=== PATIENT | female | born 1980 | race Hispanic/Latino ===

== ENCOUNTER 2018-05-12 20:56 | Emergency (ER) | payer SELFPAY ==
[~2018-05-12] VITALS: Ht 167.6 cm; Wt 93.9 kg
[2018-05-12] MEDS ORDERED: LISINOPRIL10 MG PO (21:32)
[2018-05-12 23:04] VITALS: BP 132/89
== END 2018-05-12 23:18 | disposition home or self-care (01) ==
LOC: ER 20:56
DX: I10 Essential (primary) hypertension (principal); F41.1 Generalized anxiety disorder
CPT/HCPCS: 99283

== ENCOUNTER 2018-08-27 01:29 | Emergency (ER) | payer SELFPAY ==
[~2018-08-27] VITALS: Ht 167.6 cm; Wt 93.9 kg
[~2018-08-27 01:29] MED LIST: LISINOPRIL10 MG PO
[2018-08-27] MEDS ORDERED: ONDANSETRON HCL INJ 2 MG/ML VIAL IV STA (01:55)
[2018-08-27] MEDS ORDERED: MORPHINE SULFATE 2 MG/ML SYR IV STA (01:55)
[2018-08-27] MEDS ORDERED: PANTOPRAZOLE 40 MG 10ML VIAL IV STA (01:55)
[2018-08-27] MEDS ORDERED: SODIUM CHLORIDE 0.9% 1000ML 1,000 ML IV SCH (02:00)
[2018-08-27] MEDS ORDERED: DICYCLOMINE HCL 20 MG/2 ML VIAL IM ONE (02:00)
[2018-08-27 02:30] LABS: BASOPHILS % 0.3 % (0.0-1.0); EOSINOPHILS # (AUTO) 0.1 (0.0-0.4); EOSINOPHILS % 0.7 % (0.0-6.0); HEMATOCRIT 39.3 % (34.2-44.1); HEMOGLOBIN 13.3 g/dL (12.0-16.0); LYMPHOCYTES # (AUTO) 2.9 (1.0-3.2); LYMPHOCYTES % 31.1 % (18.0-39.1); MEAN CORPUSCULAR HEMOGLOBIN 30.9 pg (28-32); MEAN CORPUSCULAR HGB CONC 33.8 g/dL (31-35); MEAN CORPUSCULAR VOLUME 91.2 fL (81-99); MONOCYTES # (AUTO) 0.6 (0.2-0.8); MONOCYTES % 6.3 % (4.4-11.3); NEUTROPHILS # (AUTO) 5.8 (2.1-6.9); NEUTROPHILS % 61.2 % (38.7-80.0); PLATELET COUNT 287 x10e3/uL (140-360); RED BLOOD COUNT 4.31 x10e6/uL (3.6-5.1); RED CELL DISTRIBUTION WIDTH 12.8 % (11.7-14.4)
[2018-08-27 02:37] LABS: ALANINE AMINOTRANSFERASE 11 IU/L (0-55); ALBUMIN 3.7 g/dL (3.5-5.0); ALBUMIN/GLOBULIN RATIO 1.3 (0.8-2.0); ALKALINE PHOSPHATASE 82 IU/L (40-150); AMYLASE 49 U/L (25-125); ANION GAP 12.7 mmol/L (8-16); BLOOD UREA NITROGEN 13 mg/dL (7-26); BUN/CREATININE RATIO 20 (6-25); CALCIUM 9.3 mg/dL (8.4-10.2); CARBON DIOXIDE 25 mmol/L (22-29); CHLORIDE 102 mmol/L (98-107); CREATININE, SERUM 0.65 mg/dL (0.57-1.11); EST GLOMERULAR FILTRATION RATE > 60 ML/MIN (60-); GLUCOSE 119 mg/dL (74-118); LIPASE 20 U/L (8-78); POTASSIUM 3.7 mmol/L (3.5-5.1); SODIUM 136 mmol/L (136-145)
[2018-08-27 02:40] LABS: BILIRUBIN,URINE NEGATIVE (NEGATIVE); CLARITY,URINE HAZY (CLEAR); COLOR,URINE YELLOW (YELLOW); KETONES,URINE NEGATIVE (NEGATIVE); LEUKOCYTE ESTERASE ,URINE NEGATIVE (NEGATIVE); NITRITE,URINE NEGATIVE (NEGATIVE); PREGNANCY TEST, URINE NEGATIVE (NEGATIVE); PROTEIN,URINE DIPSTICK NEGATIVE (NEGATIVE); URINE UROBILINOGEN 0.2 mg/dL (0.2 - 1)
[2018-08-27 02:41] LABS: BACTERIA,URINE MANY /HPF; RBC,URINE 0-5 /HPF (0-5)
[2018-08-27 02:42] LABS: EPITHELIAL CELLS,URINE MODERATE /LPF
--- NOTE | 2018-08-27 03:43 | Diagnostic Imaging Report ---
EXAM: US GALLBLADDER DATE: 08/27/2018 12:00 AM INDICATION: Right upper quadrant pain, COMPARISON: None TECHNIQUE: Transverse and longitudinal alaniz scale and color doppler sonographic images of the upper abdomen were obtained. FINDINGS: Examination is somewhat degraded by body habitus and overlying bowel gas. LIVER 16.3 cm in the right midclavicular line. Slightly heterogeneous echotexture, normal contour, no masses. GALLBLADDER Stone/sludge. The wall measures upper limits of normal, 0.29 cm. No pericholecystic fluid. Negative sonographic Patricia's sign. BILE DUCTS No intra hepatic biliary dilation. Common bile duct measures 0.6-0.7 cm, upper limits of normal PANCREAS: Poorly visualized due to overlying bowel gas. RIGHT KIDNEY: 11.6 cm Echogenicity: Normal Collecting System: No hydronephrosis Stones: None Cyst/Mass: None VESSELS: Aorta: Poorly visualized due to overlying bowel gas Inferior Vena Cava: Visualized portions are normal Main Portal Vein: 0.7 cm hepatopetal flow. FREE FLUID: None IMPRESSION: Cholelithiasis with borderline gallbladder wall thickening but no pericholecystic fluid or Patricia's sign. If there is ongoing clinical concern for acute cholecystitis, consider HIDA. Signed by: Dr Paradise Case MD on 08/27/2018 3:39 AM
== END 2018-08-27 05:39 | disposition home or self-care (01) ==
LOC: ER 01:29
DX: R10.11 Right upper quadrant pain (principal); R10.13 Epigastric pain; R11.2 Nausea with vomiting, unspecified; K80.20 Calculus of gallbladder without cholecystitis without obstruction; I10 Essential (primary) hypertension; D64.9 Anemia, unspecified; F41.9 Anxiety disorder, unspecified; F32.9 Major depressive disorder, single episode, unspecified; N80.9 Endometriosis, unspecified
CPT/HCPCS: 36415; 76705; 80053; 81001; 81025; 82150; 83690; 85025; 99281; J0500; J2270; J2405; J7030